=== PATIENT | female | born 1965 | race African-American/Black ===

== ENCOUNTER 2017-02-17 19:12 | Emergency (ER) | payer MEDICAID ==
[~2017-02-17] VITALS: Ht 182.9 cm; Wt 122.5 kg
[2017-02-17] MEDS ORDERED: LOSA50TA3 PO (19:26)
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
--- NOTE | 2017-02-17 20:25 | NUR ---
Pt conts to c/o severe pain. MD notified and pt medicated, will monitor for effects of medication.
[2017-02-17] MEDS ORDERED: KETOROLAC TROMETHAMINE 60 MG INJ IM ONE ×2 (20:30→20:32)
[2017-02-17] MEDS ORDERED: diphenhydrAMINE 50 MG/1 ML VIAL IM ONE (21:30)
[2017-02-17] MEDS ORDERED: HYDROMORPHONE 1 MG/1 ML DISP.SYRIN IM ONE (21:30)
[2017-02-17] MEDS ORDERED: ONDANSETRON ODT 4 MG TAB.RAPDIS SL ONE (21:30)
--- NOTE | 2017-02-17 21:40 | NUR ---
Pt seen by MD. Pt conts to complain of severe pain. Sts no change in pain from previous medication. Pt medicated for discomfort. Will monitor for effects of medication. Pt repositioned for comfort
[2017-02-17] MEDS ORDERED: ONDANSETRON ODT 4 MG TAB.RAPDIS ONE (21:41)
[2017-02-17] MEDS ORDERED: HYDROMORPHONE 1 MG/1 ML DISP.SYRIN ONE (21:41)
[2017-02-17] MEDS ORDERED: diphenhydrAMINE 50 MG/1 ML VIAL ONE (21:41)
[2017-02-17] MEDS ORDERED: LORAZEPAM 2 MG/1 ML VIAL IM ONE (22:30)
[2017-02-17] MEDS ORDERED: LORAZEPAM 2 MG/1 ML VIAL ONE (22:44)
--- NOTE | 2017-02-17 23:00 | NUR ---
Pt sts pain improved but c/o muscle spasms. MD notified and pt medicated. Will monitor for effects of medication.
[2017-02-18] MEDS ORDERED: OXYCODONE/APAP 5-325 MG TABLET PO ONE
[2017-02-18] MEDS ORDERED: OXYCODONE/APAP 5-325 MG TABLET ONE (00:44)
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
[2017-02-18 01:19] VITALS: BP 159/87
== END 2017-02-18 01:19 | disposition home or self-care (01) ==
LOC: ER 19:15
DX: S16.1XXA Strain of muscle, fascia and tendon at neck level, initial encounter (principal); I10 Essential (primary) hypertension; Z88.0 Allergy status to penicillin; Z88.6 Allergy status to analgesic agent; V49.9XXA Car occupant (driver) (passenger) injured in unspecified traffic accident, initial encounter; Y93.89 Activity, other specified; Y92.413 State road as the place of occurrence of the external cause; Y99.9 Unspecified external cause status
CPT/HCPCS: 70450; 72125; 96372 ×4; 99284; A4663; J1170; J1200; J1885; J2060; Q0162